=== PATIENT | male | born 2005 | race African-American/Black ===

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

== ENCOUNTER 2024-01-23 01:50 | Emergency (ER) | payer SELFPAY ==
[~2024-01-23] VITALS: Ht 188 cm; Wt 113.6 kg
[2024-01-23 02:06] VITALS: BP 121/70; PULSE 58; TEMP 98.4
== END 2024-01-23 02:49 | disposition home or self-care (01) ==
LOC: COL.ER 01:50
DX: M25.531 Pain in right wrist (principal); W01.0XXA Fall on same level from slipping, tripping and stumbling without subsequent striking against object, initial encounter

== ENCOUNTER 2024-04-16 19:41 | Emergency (ER) | payer SELFPAY ==
[~2024-04-16] VITALS: Ht 188 cm; Wt 109.1 kg
[2024-04-16 19:49] VITALS: TEMP 98.3
[2024-04-16] MEDS ORDERED: ZOFRAN ODT4 MG PO (20:56)
[2024-04-16 21:15] VITALS: BP 138/71; PULSE 80
== END 2024-04-16 21:15 | disposition home or self-care (01) ==
LOC: COL.ER 19:41
DX: B34.9 Viral infection, unspecified (principal); R05.9 Cough, unspecified; R09.81 Nasal congestion; J02.9 Acute pharyngitis, unspecified; R11.2 Nausea with vomiting, unspecified